=== PATIENT | male | born 1960 | race Caucasian/White ===

== ENCOUNTER 2017-01-18 09:44 | Inpatient (IN) | payer MEDICAID ==
[~2017-01-18 09:44] MED LIST: COUMADIN2 M1; FEOSOL325 M1 PO; FOLFOX; L-GLUTAMINE500 M1 PO; MAGNESIUM/CALCIUM PO; NEUPOGEN480 MCG/0.; NEURONTIN100 M1 PO; PRILOSEC OTC20 M1 PO; SYNTHROID175 MC1 PO; ULTRAM50 M1 PO; VITAMIN B COMP1 EAC2 PO; VITAMIN B12 PO; ZOFRAN ODT8 MG PO
[2017-01-18 10:58] LABS: BASO % 0.9 % (0-2); BASO ABSOLUTE COUNT 0.1 tho/cmm (0.0-0.2); EOS % 1.1 % (0-7); EOSINOPHIL ABSOLUTE COUNT 0.1 tho/cmm (0.0-0.7); HCT-HEMATOCRIT 36.9 % (36.0-53.5); HGB-HEMOGLOBIN 12.1 gm/dl (13.5-17.0); IMMATURE GRANULOCYTES ABSOLUTE 0.02 tho/cmm (0-0.03); IMMATURE GRANULOCYTES PERCENT 0.2 % (0-0.3); LYMPH % 8.4 % (20-45); LYMPH ABSOLUTE COUNT 0.8 tho/cmm (0.8-4.5); MCH (MEAN CORPUSCULAR HGB) 29.5 pg (28.0-32.0); MCHC MEAN CORPUSCULAR HGB CONC 32.8 % (32.0-36.0); MEAN PLATELET VOLUME 10.8 cmc (9.4-12.4); MONO % 13.8 % (0-12); MONOCYTE ABSOLUTE COUNT 1.3 tho/cmm (0.0-1.2); NEUTROPHIL ABSOLUTE COUNT 6.9 tho/cmm (1.6-8.0); NEUTROPHIL-AUTOMATED 6.9 tho/cmm (1.6-8.0); NEUTROPHILS % 75.6 % (40-80); PLATELET COUNT 316 tho/cmm (150-450); RED CELL DISTRIBUTION WIDTH 24.7 % (12.4-16.4); WHITE BLOOD COUNT 9.2 tho/cmm (4.0-10.0)
[2017-01-18 10:59] LABS: INR 1.2 INR (0.9-1.1); PROTHROMBIN TIME 14.4 SECONDS (9.0-13.6)
[2017-01-18 17:05] LABS: ABG CO2 ARTERIAL 19 mmol/L (21-27); ARTERIAL BLD GAS O2 SATURATION 84 % (95-98); ARTERIAL BLOOD GAS PCO2 30 mmHg (32-45); ARTERIAL PO2 54 mmHg (70-100); BICARBONATE 18 mmol/L (21-28); BLOOD GAS BASE EXCESS -5 mM/L (-/+3)
[2017-01-18 17:31] LABS: ALB/GLOB RATIO 0.6 (0.8-2.0); ALBUMIN 2.8 g/dl (3.5-5.0); ALKALINE PHOSPHATASE 87 U/L (33-138); ALT/SGPT 20 U/L (12-78); ANION GAP 15 mmol/L (0-20); AST/SGOT 19 U/L (10-40); BILIRUBIN,TOTAL 0.6 mg/dl (0.0-1.5); BLOOD UREA NITROGEN 19 mg/dl (6-24); C-REACTIVE PROTEIN 4.9 mg/dl (0-0.9); CARBON DIOXIDE-VENOUS 21 mmol/L (22-32); CHLORIDE 112 mmol/l (96-110); CREATININE 1.07 mg/dl (0.60-1.30); GLUCOSE 99 mg/dL (70-110); POTASSIUM 4.5 mmol/L (3.7-5.1); SODIUM 143 mmol/L (135-145); eGFR VALUE FOR BLACK >90 mL/Min
[2017-01-18 18:07] LABS: PROCALCITONIN 0.08 ng/ml (0.05-0.09)
[2017-01-19 03:56] LABS: ABG CO2 ARTERIAL 17 mmol/L (21-27); ARTERIAL BLOOD GAS PCO2 27 mmHg (32-45); BICARBONATE 16 mmol/L (21-28); BLOOD GAS BASE EXCESS -7 mM/L (-/+3)
[2017-01-19 04:07] LABS: ARTERIAL BLD GAS O2 SATURATION 93 % (95-98); ARTERIAL PO2 71 mmHg (70-100)
[2017-01-19 05:51] LABS: BASO % 0.1 % (0-2); HGB-HEMOGLOBIN 12.7 gm/dl (13.5-17.0); IMMATURE GRANULOCYTES ABSOLUTE 0.02 tho/cmm (0-0.03); IMMATURE GRANULOCYTES PERCENT 0.2 % (0-0.3); LYMPH % 3.1 % (20-45); LYMPH ABSOLUTE COUNT 0.3 tho/cmm (0.8-4.5); MCH (MEAN CORPUSCULAR HGB) 29.4 pg (28.0-32.0); MCHC MEAN CORPUSCULAR HGB CONC 32.6 % (32.0-36.0); MCV (MEAN CELL VOLUME) 90.3 fl (82.0-96.0); MEAN PLATELET VOLUME 10.7 cmc (9.4-12.4); MONO % 1.4 % (0-12); MONOCYTE ABSOLUTE COUNT 0.1 tho/cmm (0.0-1.2); NEUTROPHIL ABSOLUTE COUNT 9.4 tho/cmm (1.6-8.0); NEUTROPHIL-AUTOMATED 9.4 tho/cmm (1.6-8.0); NEUTROPHILS % 95.2 % (40-80); PLATELET COUNT 301 tho/cmm (150-450); RED BLOOD COUNT 4.32 mil/cmm (4.40-5.70); RED CELL DISTRIBUTION WIDTH 24.4 % (12.4-16.4); WHITE BLOOD COUNT 9.8 tho/cmm (4.0-10.0)
[2017-01-19 06:10] LABS: ANION GAP 17 mmol/L (0-20); BLOOD UREA NITROGEN 18 mg/dl (6-24); CALCIUM 8.8 mg/dl (8.5-10.5); CARBON DIOXIDE-VENOUS 18 mmol/L (22-32); CHLORIDE 108 mmol/l (96-110); CREATININE 1.07 mg/dl (0.60-1.30); GLUCOSE 143 mg/dL (70-110); POTASSIUM 4.4 mmol/L (3.7-5.1); SODIUM 139 mmol/L (135-145); eGFR VALUE FOR BLACK >90 mL/Min
[2017-01-20 05:39] LABS: BASO % 0.1 % (0-2); HCT-HEMATOCRIT 34.1 % (36.0-53.5); HGB-HEMOGLOBIN 11.2 gm/dl (13.5-17.0); IMMATURE GRANULOCYTES ABSOLUTE 0.04 tho/cmm (0-0.03); IMMATURE GRANULOCYTES PERCENT 0.2 % (0-0.3); LYMPH % 4.2 % (20-45); LYMPH ABSOLUTE COUNT 0.7 tho/cmm (0.8-4.5); MCH (MEAN CORPUSCULAR HGB) 28.9 pg (28.0-32.0); MCHC MEAN CORPUSCULAR HGB CONC 32.8 % (32.0-36.0); MCV (MEAN CELL VOLUME) 87.9 fl (82.0-96.0); MEAN PLATELET VOLUME 10.7 cmc (9.4-12.4); MONOCYTE ABSOLUTE COUNT 0.5 tho/cmm (0.0-1.2); NEUTROPHIL ABSOLUTE COUNT 15.4 tho/cmm (1.6-8.0); NEUTROPHIL-AUTOMATED 15.4 tho/cmm (1.6-8.0); NEUTROPHILS % 92.5 % (40-80); PLATELET COUNT 296 tho/cmm (150-450); RED BLOOD COUNT 3.88 mil/cmm (4.40-5.70); RED CELL DISTRIBUTION WIDTH 24.1 % (12.4-16.4)
[2017-01-20 05:46] LABS: WHITE BLOOD COUNT 16.6 tho/cmm (4.0-10.0)
[2017-01-20 05:55] LABS: ANION GAP 13 mmol/L (0-20); CALCIUM 8.7 mg/dl (8.5-10.5); CARBON DIOXIDE-VENOUS 24 mmol/L (22-32); CHLORIDE 106 mmol/l (96-110); GLUCOSE 155 mg/dL (70-110); POTASSIUM 3.9 mmol/L (3.7-5.1); SODIUM 139 mmol/L (135-145); eGFR VALUE FOR BLACK 52 mL/Min
[2017-01-20 05:56] LABS: BLOOD UREA NITROGEN 30 mg/dl (6-24); CREATININE 1.69 mg/dl (0.60-1.30)
[2017-01-20 10:15] LABS: BODY FLUID TYPE PLEURAL
[2017-01-20 15:07] LABS: HCT-HEMATOCRIT 35.9 % (36.0-53.5); HGB-HEMOGLOBIN 11.9 gm/dl (13.5-17.0); LYMPH % 1.2 % (20-45); LYMPH ABSOLUTE COUNT 0.2 tho/cmm (0.8-4.5); MCH (MEAN CORPUSCULAR HGB) 29.3 pg (28.0-32.0); MCHC MEAN CORPUSCULAR HGB CONC 33.1 % (32.0-36.0); MCV (MEAN CELL VOLUME) 88.4 fl (82.0-96.0); MEAN PLATELET VOLUME 11.4 cmc (9.4-12.4); MONOCYTE ABSOLUTE COUNT 0.8 tho/cmm (0.0-1.2); NEUTROPHIL ABSOLUTE COUNT 19.1 tho/cmm (1.6-8.0); NEUTROPHIL-AUTOMATED 19.1 tho/cmm (1.6-8.0); NEUTROPHILS % 94.8 % (40-80); PLATELET COUNT 355 tho/cmm (150-450); RED BLOOD COUNT 4.06 mil/cmm (4.40-5.70); RED CELL DISTRIBUTION WIDTH 24.4 % (12.4-16.4); WHITE BLOOD COUNT 20.2 tho/cmm (4.0-10.0)
[2017-01-20 15:14] LABS: ANION GAP 17 mmol/L (0-20); BLOOD UREA NITROGEN 31 mg/dl (6-24); CALCIUM 8.8 mg/dl (8.5-10.5); CARBON DIOXIDE-VENOUS 21 mmol/L (22-32); CHLORIDE 109 mmol/l (96-110); CREATININE 1.63 mg/dl (0.60-1.30); GLUCOSE 171 mg/dL (70-110); MAGNESIUM 1.9 mg/dl (1.8-2.6); POTASSIUM 3.7 mmol/L (3.7-5.1); SODIUM 143 mmol/L (135-145); eGFR VALUE FOR BLACK 55 mL/Min
[2017-01-20 19:08] LABS: HCT-HEMATOCRIT 33.7 % (36.0-53.5); HGB-HEMOGLOBIN 11.1 gm/dl (13.5-17.0); IMMATURE GRANULOCYTES ABSOLUTE 0.04 tho/cmm (0-0.03); IMMATURE GRANULOCYTES PERCENT 0.2 % (0-0.3); LYMPH % 4.9 % (20-45); MCH (MEAN CORPUSCULAR HGB) 29.2 pg (28.0-32.0); MCHC MEAN CORPUSCULAR HGB CONC 32.9 % (32.0-36.0); MCV (MEAN CELL VOLUME) 88.7 fl (82.0-96.0); MEAN PLATELET VOLUME 10.2 cmc (9.4-12.4); MONO % 3.4 % (0-12); MONOCYTE ABSOLUTE COUNT 0.7 tho/cmm (0.0-1.2); NEUTROPHIL ABSOLUTE COUNT 18.1 tho/cmm (1.6-8.0); NEUTROPHIL-AUTOMATED 18.1 tho/cmm (1.6-8.0); NEUTROPHILS % 91.5 % (40-80); PLATELET COUNT 268 tho/cmm (150-450); RED CELL DISTRIBUTION WIDTH 24.3 % (12.4-16.4); WHITE BLOOD COUNT 19.7 tho/cmm (4.0-10.0)
[2017-01-20 19:20] LABS: ANION GAP 16 mmol/L (0-20); BLOOD UREA NITROGEN 33 mg/dl (6-24); CALCIUM 8.4 mg/dl (8.5-10.5); CARBON DIOXIDE-VENOUS 22 mmol/L (22-32); CHLORIDE 106 mmol/l (96-110); CREATININE 1.65 mg/dl (0.60-1.30); GLUCOSE 178 mg/dL (70-110); POTASSIUM 3.8 mmol/L (3.7-5.1); SODIUM 140 mmol/L (135-145); eGFR VALUE FOR BLACK 54 mL/Min
[2017-01-21 05:13] LABS: HGB-HEMOGLOBIN 11.1 gm/dl (13.5-17.0); IMMATURE GRANULOCYTES ABSOLUTE 0.04 tho/cmm (0-0.03); IMMATURE GRANULOCYTES PERCENT 0.2 % (0-0.3); LYMPH % 4.2 % (20-45); LYMPH ABSOLUTE COUNT 0.8 tho/cmm (0.8-4.5); MCHC MEAN CORPUSCULAR HGB CONC 32.6 % (32.0-36.0); MCV (MEAN CELL VOLUME) 88.8 fl (82.0-96.0); MEAN PLATELET VOLUME 10.5 cmc (9.4-12.4); NEUTROPHIL ABSOLUTE COUNT 17.9 tho/cmm (1.6-8.0); NEUTROPHIL-AUTOMATED 17.9 tho/cmm (1.6-8.0); NEUTROPHILS % 90.6 % (40-80); PLATELET COUNT 248 tho/cmm (150-450); RED BLOOD COUNT 3.83 mil/cmm (4.40-5.70); RED CELL DISTRIBUTION WIDTH 24.1 % (12.4-16.4); WHITE BLOOD COUNT 19.7 tho/cmm (4.0-10.0)
[2017-01-21 05:22] LABS: ANION GAP 13 mmol/L (0-20); BLOOD UREA NITROGEN 29 mg/dl (6-24); CALCIUM 8.1 mg/dl (8.5-10.5); CARBON DIOXIDE-VENOUS 23 mmol/L (22-32); CHLORIDE 107 mmol/l (96-110); CREATININE 1.37 mg/dl (0.60-1.30); GLUCOSE 183 mg/dL (70-110); POTASSIUM 3.7 mmol/L (3.7-5.1); SODIUM 139 mmol/L (135-145); eGFR VALUE FOR BLACK 67 mL/Min
[2017-01-22 05:51] LABS: ANION GAP 14 mmol/L (0-20); BLOOD UREA NITROGEN 24 mg/dl (6-24); CALCIUM 8.5 mg/dl (8.5-10.5); CARBON DIOXIDE-VENOUS 24 mmol/L (22-32); CHLORIDE 111 mmol/l (96-110); CREATININE 1.22 mg/dl (0.60-1.30); GLUCOSE 157 mg/dL (70-110); POTASSIUM 3.9 mmol/L (3.7-5.1); SODIUM 145 mmol/L (135-145); eGFR VALUE FOR BLACK 77 mL/Min
[2017-01-22 05:53] LABS: HCT-HEMATOCRIT 32.5 % (36.0-53.5); HGB-HEMOGLOBIN 10.8 gm/dl (13.5-17.0); IMMATURE GRANULOCYTES ABSOLUTE 0.04 tho/cmm (0-0.03); IMMATURE GRANULOCYTES PERCENT 0.3 % (0-0.3); LYMPH ABSOLUTE COUNT 0.3 tho/cmm (0.8-4.5); MCH (MEAN CORPUSCULAR HGB) 29.1 pg (28.0-32.0); MCHC MEAN CORPUSCULAR HGB CONC 33.2 % (32.0-36.0); MCV (MEAN CELL VOLUME) 87.6 fl (82.0-96.0); MEAN PLATELET VOLUME 11.1 cmc (9.4-12.4); MONO % 3.1 % (0-12); MONOCYTE ABSOLUTE COUNT 0.5 tho/cmm (0.0-1.2); NEUTROPHIL ABSOLUTE COUNT 14.5 tho/cmm (1.6-8.0); NEUTROPHIL-AUTOMATED 14.5 tho/cmm (1.6-8.0); NEUTROPHILS % 94.6 % (40-80); PLATELET COUNT 224 tho/cmm (150-450); RED BLOOD COUNT 3.71 mil/cmm (4.40-5.70); RED CELL DISTRIBUTION WIDTH 24.1 % (12.4-16.4); WHITE BLOOD COUNT 15.4 tho/cmm (4.0-10.0)
[2017-01-23 05:15] LABS: HCT-HEMATOCRIT 33.8 % (36.0-53.5); IMMATURE GRANULOCYTES ABSOLUTE 0.04 tho/cmm (0-0.03); IMMATURE GRANULOCYTES PERCENT 0.3 % (0-0.3); LYMPH % 3.6 % (20-45); LYMPH ABSOLUTE COUNT 0.5 tho/cmm (0.8-4.5); MCH (MEAN CORPUSCULAR HGB) 28.9 pg (28.0-32.0); MCHC MEAN CORPUSCULAR HGB CONC 32.5 % (32.0-36.0); MCV (MEAN CELL VOLUME) 88.7 fl (82.0-96.0); MEAN PLATELET VOLUME 10.5 cmc (9.4-12.4); MONO % 2.3 % (0-12); MONOCYTE ABSOLUTE COUNT 0.3 tho/cmm (0.0-1.2); NEUTROPHIL ABSOLUTE COUNT 12.6 tho/cmm (1.6-8.0); NEUTROPHIL-AUTOMATED 12.6 tho/cmm (1.6-8.0); NEUTROPHILS % 93.8 % (40-80); PLATELET COUNT 218 tho/cmm (150-450); RED BLOOD COUNT 3.81 mil/cmm (4.40-5.70); WHITE BLOOD COUNT 13.4 tho/cmm (4.0-10.0)
[2017-01-23 05:17] LABS: ANION GAP 13 mmol/L (0-20); BLOOD UREA NITROGEN 29 mg/dl (6-24); CALCIUM 8.4 mg/dl (8.5-10.5); CARBON DIOXIDE-VENOUS 24 mmol/L (22-32); CHLORIDE 110 mmol/l (96-110); CREATININE 1.19 mg/dl (0.60-1.30); GLUCOSE 123 mg/dL (70-110); MAGNESIUM 2.2 mg/dl (1.8-2.6); PHOSPHOROUS 2.3 mg/dl (2.5-4.9); POTASSIUM 4.1 mmol/L (3.7-5.1); SODIUM 143 mmol/L (135-145); eGFR VALUE FOR BLACK 80 mL/Min
[2017-01-24 04:53] LABS: BASO % 0.1 % (0-2); HCT-HEMATOCRIT 36.4 % (36.0-53.5); HGB-HEMOGLOBIN 11.9 gm/dl (13.5-17.0); IMMATURE GRANULOCYTES ABSOLUTE 0.08 tho/cmm (0-0.03); IMMATURE GRANULOCYTES PERCENT 0.6 % (0-0.3); LYMPH % 9.1 % (20-45); LYMPH ABSOLUTE COUNT 1.3 tho/cmm (0.8-4.5); MCHC MEAN CORPUSCULAR HGB CONC 32.7 % (32.0-36.0); MCV (MEAN CELL VOLUME) 88.8 fl (82.0-96.0); MEAN PLATELET VOLUME 10.5 cmc (9.4-12.4); MONO % 3.4 % (0-12); MONOCYTE ABSOLUTE COUNT 0.5 tho/cmm (0.0-1.2); NEUTROPHIL ABSOLUTE COUNT 12.2 tho/cmm (1.6-8.0); NEUTROPHIL-AUTOMATED 12.2 tho/cmm (1.6-8.0); NEUTROPHILS % 86.8 % (40-80); PLATELET COUNT 228 tho/cmm (150-450)
[2017-01-24 05:07] LABS: ANION GAP 12 mmol/L (0-20); BLOOD UREA NITROGEN 32 mg/dl (6-24); CALCIUM 8.3 mg/dl (8.5-10.5); CARBON DIOXIDE-VENOUS 25 mmol/L (22-32); CHLORIDE 110 mmol/l (96-110); CREATININE 1.06 mg/dl (0.60-1.30); GLUCOSE 99 mg/dL (70-110); MAGNESIUM 2.2 mg/dl (1.8-2.6); POTASSIUM 3.9 mmol/L (3.7-5.1); SODIUM 143 mmol/L (135-145); eGFR VALUE FOR BLACK >90 mL/Min
[2017-01-25 08:08] LABS: INR 1.1 INR (0.9-1.1); PROTHROMBIN TIME 12.4 SECONDS (9.0-13.6)
[2017-01-25] MEDS ORDERED: LEVAQUIN750 M1 PO (09:46)
[2017-01-25] MEDS ORDERED: LOVENOX100 MG/1 M SC (09:47)
[2017-01-25] MEDS ORDERED: COLACE100 M1 PO (09:50)
[2017-01-25] MEDS ORDERED: MIRALAX17 G2 PO (09:51)
[2017-01-25] MEDS ORDERED: PREDNISONE10 M1 PO (09:55)
[2017-01-25] MEDS ORDERED: AMIODARONE HCL200 M1 PO (11:19)
[2017-01-25] MEDS ORDERED: LASIX40 M1 PO (11:38)
== END 2017-01-25 12:10 | disposition home health service (06) | DRG 271 ==
LOC: RADSP 09:44 → SHSB 09:45 → RADSP 19:08 → PCUA 19:14 → ORW 01-20 12:55 → PACU 01-20 14:38 → PCUA 01-20 16:35
PROVIDERS: Colon & Rectal Surgery; Internal Medicine Cardiovascular Disease; Internal Medicine Pulmonary Disease; Radiology Diagnostic Radiology; Surgery; ADMIT Hospitalist
PROC: 0W9D0ZZ Drainage of Pericardial Cavity, Open Approach (ICD-10-PCS; principal; 2017-01-18)
DX: I31.3 Pericardial effusion (noninflammatory) (principal); I82.401 Acute embolism and thrombosis of unspecified deep veins of right lower extremity
CPT/HCPCS: C1729; C1769; C8924; C8929; J0282; J0690; J1650; J1720; J1940; J1956; J2250; J2270; J2543; J2930; J2997; J3010; J3370; J3480; J7030; J7040; J7512; P9045; Q9967

== ENCOUNTER 2017-02-25 10:46 | Emergency (ER) | payer MEDICAID ==
[~2017-02-25 10:46] MED LIST changes: +AMIODARONE HCL200 M1 PO; +COLACE100 M1 PO; +LASIX40 M1 PO; +LEVAQUIN750 M1 PO; +LOVENOX100 MG/1 M SC; +MIRALAX17 G2 PO; +PREDNISONE10 M1 PO
[2017-02-25] MEDS ORDERED: AMIODARONE HCL200 M1 PO (12:22)
[2017-02-25 14:09] LABS: BASO % 0.5 % (0-2); EOS % 0.8 % (0-7); HCT-HEMATOCRIT 38.7 % (36.0-53.5); HGB-HEMOGLOBIN 12.8 gm/dl (13.5-17.0); IMMATURE GRANULOCYTES ABSOLUTE 0.01 tho/cmm (0-0.03); IMMATURE GRANULOCYTES PERCENT 0.3 % (0-0.3); LYMPH % 16.5 % (20-45); LYMPH ABSOLUTE COUNT 0.7 tho/cmm (0.8-4.5); MCH (MEAN CORPUSCULAR HGB) 29.2 pg (28.0-32.0); MCHC MEAN CORPUSCULAR HGB CONC 33.1 % (32.0-36.0); MCV (MEAN CELL VOLUME) 88.4 fl (82.0-96.0); MEAN PLATELET VOLUME 10.2 cmc (9.4-12.4); MONOCYTE ABSOLUTE COUNT 0.6 tho/cmm (0.0-1.2); NEUTROPHIL ABSOLUTE COUNT 2.6 tho/cmm (1.6-8.0); NEUTROPHIL-AUTOMATED 2.6 tho/cmm (1.6-8.0); NEUTROPHILS % 66.9 % (40-80); PLATELET COUNT 295 tho/cmm (150-450); RED BLOOD COUNT 4.38 mil/cmm (4.40-5.70); RED CELL DISTRIBUTION WIDTH 19.6 % (12.4-16.4); WHITE BLOOD COUNT 3.9 tho/cmm (4.0-10.0)
[2017-02-25 14:10] LABS: INR 1.7 INR (0.9-1.1); PROTHROMBIN TIME 19.8 SECONDS (9.0-13.6)
[2017-02-25 14:18] LABS: ANION GAP 14 mmol/L (0-20); BLOOD UREA NITROGEN 15 mg/dl (6-24); CALCIUM 8.2 mg/dl (8.5-10.5); CARBON DIOXIDE-VENOUS 24 mmol/L (22-32); CHLORIDE 105 mmol/l (96-110); CREATININE 1.57 mg/dl (0.60-1.30); GLUCOSE 80 mg/dL (70-110); POTASSIUM 3.1 mmol/L (3.7-5.1); SODIUM 140 mmol/L (135-145); eGFR VALUE FOR BLACK 57 mL/Min
== END 2017-02-25 15:25 ==
LOC: EDMED 10:46
PROVIDERS: Emergency Medicine
DX: J90 Pleural effusion, not elsewhere classified (principal); C15.9 Malignant neoplasm of esophagus, unspecified; E03.9 Hypothyroidism, unspecified; F17.200 Nicotine dependence, unspecified, uncomplicated; Z86.718 Personal history of other venous thrombosis and embolism; Z79.01 Long term (current) use of anticoagulants; Z79.890 Hormone replacement therapy; Z79.899 Other long term (current) drug therapy